=== PATIENT | female | born 1990 | race Caucasian/White ===

== ENCOUNTER 2017-11-22 03:13 | Inpatient (IN) | payer OTHER ==
[~2017-11-22] VITALS: Ht 165.1 cm; Wt 108.0 kg
[~2017-11-22 03:13] MED LIST: AMOXICILLIN500 M2 PO; AMOXICILLIN875 M1 PO; CLEOCIN HCL300 M1 PO; DEXTROAMP-AMPHE10 MG PO; DEXTROAMP-AMPHE20 M1 PO; DOK100 MG PO; IBUPROFEN600 M1 PO; IBUPROFEN800 M1 PO; MOTRIN 800MG T800 MG PO; NUVIGIL150 M1 PO; PERCOCET 325 MG1 TA2 PO; PERCOCET 5-3251 EACH PO; TOPAMAX100 M1 PO; TRI-SPRINTEC T1 EACH PO
--- NOTE | 2017-11-22 11:28 | Admission Core Measures ---
Acute Coronary Syndrome (CM) ACS Core Measures Acute Coronary Syndrome Diagnosis No Congestive Heart Failure (NEW) CHF Core Measures Congestive Heart Failure Diagnosis No Cerebrovascular Accident CVA Core Measures CVA/TIA Diagnosis No Venous Thromboembolism VTE Core Joe (View Protocol) VTE Risk Factors Surgery No Mechanical VTE Prophylaxis d/t N/A MechProphylax Ordered No VTE Pharm Prophylaxis d/t NA PharmProphylax ordered Problem List As ranked by this Provider includes Assessment & Plan 1. Morbid obesity 2. S/P laparoscopic sleeve gastrectomy HOME MEDS Home Med List Topiramate (Topamax) 100 MG TABLET 1 TAB PO BID MIGRAINES (Reported)
[2017-11-22] MEDS ORDERED: PRILOSEC OTC20 M1 PO (12:26)
[2017-11-22] MEDS ORDERED: PROBIOTIC1 EACH PO (12:27)
--- NOTE | 2017-11-22 13:15 | Operative Report ---
Operative/Inv Procedure Report Surgery Date: 11/22/17 Name of Procedure: Laparoscopic Sleeve Gastrectomy, Laparoscopic Hiatal Hernia repair Pre-Operative Diagnosis: Morbid Obesity BMI 42 Post-Operative Diagnosis: Morbid Obesity BMI 42, Paraesophageal hernia Estimated Blood Loss: less than 50ml Surgeon/Honing Machine Operator Tool: Dash Baker DO Anesthesia: general endotracheal tube IV Fluids: 1200 cc Drains: None Specimens: Stomach Complications: None Condition: Stable Operative Indication: This is a 26-year-old female who presented to the office for workup for bariatric surgery. After appropriate workup was completed I discussed with the patient the band, the sleeve, and the gastric bypass. The patient chose to undergo a sleeve gastrectomy. All risks including but not limited to bleeding, infection, leak, stricture, injury to surrounding bowel/esophagus/stomach/liver/ spleen, long-term reflux, DVT/PE, and mortality of 05/999 patients were discussed in detail. The patient understood everything and decided to proceed. Operative/Procedure Note Note: The patient was brought to the operating room and placed on the operating room table in supine position. Venodyne stockings were placed and adequate general endotracheal anesthesia was obtained. The patient was prepped and draped in standard surgical fashion. Began the procedure by making a 2 cm transverse incision supraumbilically and slightly to the left of the midline. Then using a 12 mm clear Visiport and a 10 mm 0 laparoscope, the abdominal cavity was accessed. Great care was taken to go through the anterior rectus sheath, the posterior rectus sheath, and through the peritoneum. Once we entered the peritoneum the abdominal cavity was insufflated to 15 mmHg. Upon initial examination no obvious gross pathology was seen. Accessory trocars were placed, 5 mm in the epigastrium for the Jake liver retractor. The retractor was inserted and the liver was retracted anteriorly exposing the hiatus, no hiatal hernia was seen. 5 mm ports were placed in the right and left upper quadrant, a 5 mm left lateral port, and a 15 mm right lateral port. Began the procedure by mobilizing the greater curvature of the stomach approximately 7 cm from the pylorus. Once the retrogastric space was reached the whole greater curvature was mobilized maintaining hemostasis using Harmonic scalpel. Full hiatal dissection was performed, and a small sliding hiatal hernia was seen. The left johny of the diaphragm was dissected away from the esophagus, reducing the hernia sac. We then brought our attention to the right johny, the pars flaccida was opened until the right johny was clearly visualized. Following this the right johny was dissected away from the esophagus as well and the esophagus was circumferentially dissected out of the chest. At the completion of dissection the esophagus was in the abdominal cavity for about 2-3 cm. The esophagus was retracted anteriorly and the hiatus was closed using 2-0 Tycron suture. At the completion of the closure there was ample room for the esophagus and the hiatus was adequately closed. Posterior adhesions were taken down using Harmonic scalpel as well. Once the stomach was adequately mobilized a 38 [place] bougie was inserted and placed along the lesser curvature of the stomach. Once the bougie was in the appropriate position we began creating our sleeve, two 60 mm black staple loads with seamguard followed by two 60 mm purple staple loads with seamguard as well, and finished with 45 mm purple load plain. Great care was taken to leave ample room at the incisura angularis, to prevent any twisting or kinking of the sleeve, to stay lateral to the esophagogastric fat pad, and to do a full fundal excision. At the completion of the staple line the staple line was examined, it appeared intact and no obvious bleeding was noted. The bougie was removed, the sleeve was lying nicely without any twisting or kinking. The resected stomach was removed through the right lateral port site. The port and the left upper quadrant were irrigated until clear. All ports were removed under direct visualization no obvious bleeding was noted. The 15 mm port site fascia was closed using 0 Vicryl suture. The skin was closed using 4-0 Monocryl. Steri-Strips and dressings were placed. The patient was successfully extubated and transferred to the recovery room in stable condition. The patient tolerated the procedure well with no complications. Findings: 4 cm sliding hiatal hernia, 38 Fr bougie CC: Mary EDWARDS,Douglas Nicole
--- NOTE | 2017-11-22 13:59 | Patient Discharge Instructions ---
Discharge Instructions General Discharge Information You were seen/treated for: Morbid Obesity (BMI 42), Paraesophageal hernia You had these procedures: Surgery Date: 11/22/17 Name of Procedure: Laparoscopic Sleeve Gastrectomy, Laparoscopic Hiatal Hernia repair Watch for these problems: FEVER>101.3, INCREASED PAIN, REDNESS/SWELLING/DRAINAGE, DIZZINESS, SHORTNESS OF BREATH, CHEST PAINS No bath, but you may shower: Yes Other wound care: OK TO REMOVE OUTER DRESSINGS. LEAVE WHITE STERI STRIPS IN PLACE. OK TO SHOWER. KEEP INCISIONS CLEAN & DRY. Diet Continue normal diet: No Recommended Diet: Bariatric Additional DIET Information: WEEKLY BARIATRIC STAGE DIET ADVANCEMENT DIRECTED, TOLERATED Activity Full Activity/No Limits: No Activity Self Limited: Yes Pounds, do NOT lift more than: 10 Other activity limits: NO HEAVY LIFTING. NO STRENUOUS ACTIVITY. Acute Coronary Syndrome Inclusion Criteria At DC or during hospital stay patient has or had the following: ACS DIAGNOSIS No Discharge Core Measures Meds if any: Prescribed or Continued at Discharge Meds if any: NOT Prescribed or Continued at Discharge Congestive Heart Failure Inclusion Criteria At DC or during hospital stay patient has or had the following: CHF DIAGNOSIS No Discharge Core Measures Meds if any: Prescribed or Continued at Discharge Meds if any: NOT Prescribed or Continued at Discharge Cerebrovascular accident Inclusion Criteria At DC or during hospital stay patient has or had the following: CVA/TIA Diagnosis No Discharge Core Measures Meds if any: Prescribed or Continued at Discharge Meds if any: NOT Prescribed or Continued at Discharge Venous thromboembolism Inclusion Criteria VTE Diagnosis No VTE Type NONE VTE Confirmed by (Test) NONE Discharge Core Measures - Per Current guidelines, there needs to be overlap - treatment for the first 5 days of Warfarin therapy. - If discharged on Warfarin prior to 5 days of - overlap therapy, the patient will need to be - assessed for post discharge needs including - *Post discharge parental anticoagulation - *Warfarin and/or parental anticoagulation education - *Follow up date to check INR post discharge At least 5 days overlap therapy as Inpatient No Meds if any: Prescribed or Continued at Discharge Note: Overlap Therapy is Warfarin and Anticoagulant Meds if any: NOT Prescribed or Continued at Discharge
[2017-11-22] MEDS ORDERED: HYCET 7.5 MG-3473 ML PO (14:00)
--- NOTE | 2017-11-22 14:04 | Surg Short-stay <48hrs Dis Sum ---
Visit Information Visit Dates Admission Date: 11/22/17 Discharge Date: 11/23/17 Surgical Short Stay DC Summary Admission Diagnosis: Morbid Obesity (BMI 42) Final Diagnosis: Morbid Obesity (BMI 42), Paraesophageal hernia Procedure(s): Surgery Date: 11/22/17 Name of Procedure: Laparoscopic Sleeve Gastrectomy, Laparoscopic Hiatal Hernia repair Summary/Significant Findings: Electively scheduled laparoscopic sleeve gastrectomy, hiatal hernia repair on 04/01 by , for history of morbid obesity (BMI 42) and paraesophageal hernia. Started on a stage 1 bariatric diet post-operatively. Pain control transitioned from iv to oral medication. Discharged to home once pain controlled and tolerating bariatric diet. No lovenox teaching needed, according to her pre- op risk assessment. Condition at Discharge: stable Discharge Disposition: home or self care Discharge instructions provided to patient/family: Yes Post discharge follow-up plan: one week follow up with Copies to: Mary EDWARDS,Douglas Nicole
--- NOTE | 2017-11-22 14:55 | PN- Bariatrics ---
Subjective Subjective: Mild complains of nausea and mild epigastric discomfort. Otherwise feeling well and is in good spirits. Objective Vital Signs and I&Os Vital Signs Date Time Temp Pulse Resp B/P B/P Pulse O2 O2 Flow FiO2 Mean Ox Delivery Rate 11/22 1500 98.1 88 18 122/84 96 Room Air 11/22 1454 96 Room Air Intake & Output 11/22 1600 11/22 0800 11/22 0000 11/21 1600 11/21 0800 11/21 0000 Intake Total Output Total Balance Patient 238 lb Weight Weight Bed scale Measurement Method Physical Exam: Well-developed well-nourished no apparent distress. HEENT: Atraumatic, extraocular motion intact Neck: Supple, no lymphadenopathy Respiratory: No respiratory distress Abdomen: Obese, soft, minimal tenderness in the epigastrium. Incision sites clean dry and intact. Positive bowel sounds. Extremities: No edema, no calf pain Neuro: Alert and oriented x3 Psych: Mood affect normal, normal memory normal judgment. Skin: Warm and dry, no rash on exposed skin Assessment/Plan Assessment/Plan Postop day #0 status post laparoscopic sleeve gastrectomy and hiatal hernia repair Bariatric stage I diet. IV fluids. PRN antiemetics. N.p.o. after midnight, possible upper GI series in the morning Ambulate PRN pain meds Heparin sq (no out pt lovenox needed) ALPS GI ppx w IV protonix Core Measures Venous Thromboembolism VTE Risk Factors Surgery No Mechanical VTE Prophylaxis d/t N/A MechProphylax Ordered No VTE Pharm Prophylaxis d/t NA PharmProphylax ordered
[2017-11-22 15:00] VITALS: BP 122/84
[2017-11-22 19:33] VITALS: BP 140/100
[2017-11-22 19:51] VITALS: BP 110/84
[2017-11-23 06:11] VITALS: BP 118/78
[2017-11-23 08:18] LABS: ABSOLUTE BASOPHIL COUNT 0 /CUMM (0.0-0.2); ABSOLUTE EOSINOPHIL COUNT 0 /CUMM (0.0-0.7); ABSOLUTE GRANULOCYTE CT 7.7 /CUMM (1.4-6.5); ABSOLUTE LYMPH COUNT 1.2 /CUMM (1.2-3.4); ABSOLUTE MONOCYTE COUNT 0.8 /CUMM (0.10-0.60); BASOPHIL % 0.3 % (0.0-2.0); EOSINOPHIL % 0.1 % (0-5); GRANULOCYTE % 79.3 % (42.2-75.2); HEMATOCRIT 35.8 % (37-47); MEAN CORPUSCULAR HGB 26.9 PG (27.0-31.0); MEAN CORPUSCULAR HGB CONC 32.6 G/DL (33.0-37.0); MEAN CORPUSCULAR VOLUME 82.6 FL (81.0-99.0); PLATELET COUNT 260 /CUMM (130-400); RBC DISTRIBUTION WIDTH 15.5 % (11.5-14.5); RED BLOOD CELL CT 4.34 /CUMM (4.20-5.40); WHITE BLOOD CELL COUNT 9.7 /CUMM (4.8-10.8)
--- NOTE | 2017-11-23 09:32 | PN- Bariatrics ---
Subjective Subjective: Pt. had a good night. Denies nausea or emesis. States is comfortable on IV Tylenol. Objective Vital Signs and I&Os Vital Signs Date Time Temp Pulse Resp B/P B/P Pulse O2 O2 Flow FiO2 Mean Ox Delivery Rate 11/23 0611 98.3 87 18 118/78 97 11/23 0600 97 Room Air 11/22 2200 96 Room Air 11/22 1951 110/84 / 1933 98.4 97 20 140/100 96 Room Air 11/22 1800 96 Room Air 11/22 1655 Room Air Room Air 11/22 1500 98.1 88 18 122/84 96 Room Air 11/22 1454 96 Room Air Intake & Output 11/23 1600 11/23 0800 11/23 0000 11/22 1600 11/22 0800 11/22 0000 Intake Total 750 1205 225 Output Total 350 1500 1025 Balance -350 -750 180 225 Intake, IV 750 875 135 Intake, Oral 0 330 90 Output, Urine 350 1500 1025 Patient 238 lb Weight Weight Bed scale Measurement Method Alert, oriented, appropriate, no distress Lungs clear Heart normal rate Abdomen obese, soft, port sites C/D/I Non tender Extremities without edema. Assessment/Plan Assessment/Plan 26 y o female with xh of MO/ Hiatal Hernia, s/p lap. Gastric sleeve and HH repair. Clinically looks very well No complaints of nausea or pain Ambulatory Incisional sites intact Will d/c UGI and advance to bariatric stage 1 diet Increase ambulation Hep lock IVF No need for Lovenox at home per criteria I anticipate d/c home later today if continue to do well. Communicated with Dr Baker Core Measures Venous Thromboembolism VTE Risk Factors Surgery No Mechanical VTE Prophylaxis d/t N/A MechProphylax Ordered No VTE Pharm Prophylaxis d/t NA PharmProphylax ordered
[2017-11-23] MEDS ORDERED: HYCET 7.5 MG-3473 ML PO (10:00)
== END 2017-11-23 13:55 | DRG 621 ==
LOC: SDA 03:13 → ENRESERV 13:19 → ENTRNSPT 14:16 → EDTRNSPT 14:24 → EDTRNSPTSTS 14:24 → 2NB 14:33 → CMPTRNSPT 14:45 → ENPENDDIS 11-23 12:15 → 2NB 11-23 13:55
PROVIDERS: Physician Assistant
PROC: 0DB64Z3 Excision of Stomach, Percutaneous Endoscopic Approach, Vertical (ICD-10-PCS; principal; 2017-11-22)
PROC: 0BQT4ZZ Repair Diaphragm, Percutaneous Endoscopic Approach (ICD-10-PCS; 2017-11-22)
DX: E66.01 Morbid (severe) obesity due to excess calories (principal); Z68.41 Body mass index [BMI] 40.0-44.9, adult; K44.9 Diaphragmatic hernia without obstruction or gangrene; Z87.891 Personal history of nicotine dependence
CPT/HCPCS: 2NBP; 36592; 81025; 82436; J0131; J0690; J1644; J2405; J3490; J7042